=== PATIENT | male | born 2000 | race Caucasian/White ===

== ENCOUNTER 2024-01-15 03:56 | Emergency (ER) | payer BC, SELFPAY ==
[2024-01-15 04:04] VITALS: BP 155/107; PULSE 103; RESP 18; TEMP 36.7; O2SAT 98; BMI 34.0
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
[2024-01-15 04:35] VITALS: RESP 14
[2024-01-15] MEDS: fentaNYL 50 mcg/mL INJ 2mL 100 MCG IVP (04:35)
[2024-01-15] MEDS: ondansetron 2 mg/ML SDV 2 mL 4 MG IVP ×2 (04:35→05:37)
--- NOTE | 2024-01-15 04:57 | PC.NURSE ---
sling placed on pt with instructions to adjust for comfort. pt verbalized understanding.
--- NOTE | 2024-01-15 05:14 | PC.NURSE ---
food given to pt from pt nutrition room per request
[2024-01-15 06:06] VITALS: BP 136/86; PULSE 95; RESP 14; O2SAT 96
== END 2024-01-15 06:08 | disposition home or self-care (01) ==
PROVIDERS: Emergency Provider Emergency Medicine
DX: S43.101A Unspecified dislocation of right acromioclavicular joint, initial encounter (principal); V86.59XA Driver of other special all-terrain or other off-road motor vehicle injured in nontraffic accident, initial encounter
CPT/HCPCS: 73030; 96374; 96375; 96376; 99284; J2405; J3010